=== PATIENT | female | born 1950 ===

== ENCOUNTER 2024-05-15 06:20 | Day surgery (SDC) | payer OTHER ==
[2024-05-15] MEDS ORDERED: fentaNYL CITRATE 50 MCG/ML AMPUL IV PUSH ONE (08:30)
[2024-05-15] MEDS ORDERED: MIDAZOLAM HCL 2 MG/2 ML VIAL IV ONE (08:30)
[2024-05-15] MEDS ORDERED: DIPHENHYDRAMINE HCL 50 MG/ML VIAL 1ML IV ONE (08:30)
== END 2024-05-15 10:45 | disposition home or self-care (01) ==
LOC: AMB-ENDOS 06:20 → CIR.AMB 13:30
PROVIDERS: ATTEND Colon & Rectal Surgery
DX: K63.5 Polyp of colon (principal); K57.30 Diverticulosis of large intestine without perforation or abscess without bleeding; Z12.11 Encounter for screening for malignant neoplasm of colon